=== PATIENT | female | born 1995 | race Caucasian/White ===

== ENCOUNTER 2017-08-17 17:20 | Emergency (ER) | payer BC ==
--- NOTE | 2017-08-17 18:33 | ER ---
Nurse's Notes [facility] Name: Carissa Sommer Age: 22 yrs Sex: Female : 1995 Arrival Date: 08/17/2017 Time: 17:24 Bed 18 Private MD: Giancarlo Mccann T Diagnosis: Headache;Migraine Presentation: 08/17 17:34 Presenting complaint: Patient states: I have been getting migraines a few times a month la1 and lately the medicines have not been helping and I am getting nauseous. Transition of care: patient was not received from another setting of care. Onset of symptoms was August 17, 2017. Initial Sepsis Screen: Does the patient meet any 2 criteria? No. Patient's initial sepsis screen is negative. Does the patient have a suspected source of infection? No. Patient's initial sepsis screen is negative. Care prior to arrival: None. 17:34 Method Of Arrival: Ambulatory la1 17:34 Acuity: SERINA 3 la1 Triage Assessment: 18:14 Headache History: The patient has had previous headaches. General: Appears. General: rk2 Appears in no apparent distress. slender, well groomed, well developed, well nourished, Behavior is calm, cooperative. Pain: Pain currently is 7 out of 10 on a pain scale. Pain began This morning when she woke up Also complains of. Neuro: Level of Consciousness is alert, obeys commands, Oriented to person, place, time, situation. Respiratory: Airway is patent Respiratory effort is even, unlabored, Respiratory pattern is regular, symmetrical. Derm: Skin is pink, warm \T\ dry. 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 - Social history:: Smoking status: Patient/guardian denies using tobacco. Screenin:14 Abuse screen: Denies threats or abuse. Nutritional screening: No deficits noted. rk2 Tuberculosis screening: No symptoms or risk factors identified. Fall Risk None identified. Vital Signs: 17:35 BP 160 / 90; Pulse 111; Resp 16; Temp 98.2; Pulse Ox 100% on R/A; Weight 49.9 kg; la1 Height 4 ft. 11 in. (149.86 cm); 18:56 BP 123 / 92; Pulse 99; Resp 16; Pulse Ox 100% on R/A; rk2 17:35 Body Mass Index 22.22 (49.90 kg, 149.86 cm) la1 ED Course: 17:24 Patient arrived in ED. mr 17:24 Giancarlo Mccann MD is Private Physician. mr 17:35 Triage completed. la1 17:35 Arm band placed on right wrist. la1 17:48 Evelin Bell RN is Primary Nurse. rk2 17:51 Jeff Olivares MD is Attending Physician. nirav 18:14 Patient has correct armband on for positive identification. Bed in low position. Call rk2 light in reach. 18:31 Giancarlo Mccann MD is Referral Physician. [facility] 18:32 Charli Colmenares MD is Referral Physician. [facility] 18:57 No provider procedures requiring assistance completed. Patient did not have IV access rk2 during this emergency room visit. Administered Medications: 18:39 Drug: Zofran 4 mg Route: PO; rk2 18:56 Follow up: Response: No adverse reaction rk2 18:39 Drug: TORadol 60 mg Route: IM; Site: right deltoid; rk2 18:55 Follow up: Response: No adverse reaction; Pain is decreased rk2 Outcome: 18:33 Discharge ordered by . [facility] 18:57 Discharged to 2 18:57 Discharged to home ambulatory. 18:57 Condition: good 18:57 Discharge instructions given to patient, Prescriptions given X 2. 18:58 Patient left the ED. rk2 Signatures: Jeff Olivares MD MD cha Rivera, Maria mr Thomas Workman RN RN la1 Evelin Bell RN RN rk2 Corrections: (The following items were deleted from the chart) 18:19 18:18 URINE --ANCILLARY+UC.LAB.BRZ drawn and sent. rk2 EDMS
--- NOTE | 2017-08-17 18:33 | EDPHYS ---
Physician Documentation [facility] Name: Carissa Sommer Age: 22 yrs Sex: Female : 1995 Arrival Date: 08/17/2017 Time: 17:24 Bed 18 Private MD: Giancarlo Mccann T ED Physician Jeff Olivares HPI: 08/17 18:29 This 22 yrs old Female presents to ER via Ambulatory with complaints of nirav Headache. 18:29 The patient complains of pain to the top of head, forehead, left frontal area, left nirav side of the back of head, right frontal area and right side of the back of head. The patient describes the headache as aching. Onset: The symptoms/episode began/occurred just prior to arrival. Associated signs and symptoms: The patient has no apparent associated signs or symptoms. Severity of symptoms: At its worst the pain was moderate, in the emergency department the pain is unchanged. Headache History: The patient has had previous headaches and this one is similar to previous episodes. The symptoms are alleviated by nothing. the symptoms are aggravated by lights, movement. The patient has experienced similar episodes in the past, several times. 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 - Social history:: Smoking status: Patient/guardian denies using tobacco. ROS: 18:29 Constitutional: Negative for fever, chills, and weight loss, Eyes: Negative for injury, nirav pain, redness, and discharge, ENT: Negative for injury, pain, and discharge, Neck: Negative for injury, pain, and swelling, Cardiovascular: Negative for chest pain, palpitations, and edema, Respiratory: Negative for shortness of breath, cough, wheezing, and pleuritic chest pain, Abdomen/GI: Negative for abdominal pain, nausea, vomiting, diarrhea, and constipation, Back: Negative for injury and pain, : Negative for injury, bleeding, discharge, and swelling, MS/Extremity: Negative for injury and deformity, Skin: Negative for injury, rash, and discoloration, Psych: Negative for depression, anxiety, suicide ideation, homicidal ideation, and hallucinations, Allergy/Immunology: Negative for hives, rash, and allergies, Endocrine: Negative for neck swelling, polydipsia, polyuria, polyphagia, and marked weight changes, Hematologic/Lymphatic: Negative for swollen nodes, abnormal bleeding, and unusual bruising. 18:29 Neuro: Positive for headache. Exam: 18:29 Constitutional: This is a well developed, well nourished patient who is awake, alert, nirav and in no acute distress. Head/Face: Normocephalic, atraumatic. Eyes: Pupils equal round and reactive to light, extra-ocular motions intact. Lids and lashes normal. Conjunctiva and sclera are non-icteric and not injected. Cornea within normal limits. Periorbital areas with no swelling, redness, or edema. ENT: Nares patent. No nasal discharge, no septal abnormalities noted. Tympanic membranes are normal and external auditory canals are clear. Oropharynx with no redness, swelling, or masses, exudates, or evidence of obstruction, uvula midline. Mucous membranes moist. Neck: Trachea midline, no thyromegaly or masses palpated, and no cervical lymphadenopathy. Supple, full range of motion without nuchal rigidity, or vertebral point tenderness. No Meningismus. Chest/axilla: Normal chest wall appearance and motion. Nontender with no deformity. No lesions are appreciated. Cardiovascular: Regular rate and rhythm with a normal S1 and S2. No gallops, murmurs, or rubs. Normal PMI, no JVD. No pulse deficits. Respiratory: Lungs have equal breath sounds bilaterally, clear to auscultation and percussion. No rales, rhonchi or wheezes noted. No increased work of breathing, no retractions or nasal flaring. Abdomen/GI: Soft, non-tender, with normal bowel sounds. No distension or tympany. No guarding or rebound. No evidence of tenderness throughout. Back: No spinal tenderness. No costovertebral tenderness. Full range of motion. Female : Normal external genitalia. Skin: Warm, dry with normal turgor. Normal color with no rashes, no lesions, and no evidence of cellulitis. MS/ Extremity: Pulses equal, no cyanosis. Neurovascular intact. Full, normal range of motion. Neuro: Awake and alert, GCS 15, oriented to person, place, time, and situation. Cranial nerves II-XII grossly intact. Motor strength 5/5 in all extremities. Sensory grossly intact. Cerebellar exam normal. Normal gait. Psych: Awake, alert, with orientation to person, place and time. Behavior, mood, and affect are within normal limits. 18:29 Neck: ROM/movement: is normal, no acute changes, Meningeal signs: are not present, Kernig's sign is negative, Brudzinski's sign is negative. Vital Signs: 17:35 BP 160 / 90; Pulse 111; Resp 16; Temp 98.2; Pulse Ox 100% on R/A; Weight 49.9 kg; la1 Height 4 ft. 11 in. (149.86 cm); 18:56 BP 123 / 92; Pulse 99; Resp 16; Pulse Ox 100% on R/A; rk2 17:35 Body Mass Index 22.22 (49.90 kg, 149.86 cm) la1 MDM: 17:51 Patient medically screened. [facility] 18:34 Data reviewed: vital signs, nurses notes, lab test result(s), urinalysis. [facility] 08/17 18:14 Order name: Urine Dipstick--Ancillary (enter results) 08/17 18:14 Order name: Urine --Ancillary (enter results) 08/17 17:52 Order name: Urine Dipstick-Ancillary (obtain specimen); Complete Time: 18:19 [facility] 08/17 17:52 Order name: Urine Test (obtain specimen); Complete Time: 18:19 [facility] Administered Medications: 18:39 Drug: Zofran 4 mg Route: PO; rk2 18:56 Follow up: Response: No adverse reaction rk2 18:39 Drug: TORadol 60 mg Route: IM; Site: right deltoid; rk2 18:55 Follow up: Response: No adverse reaction; Pain is decreased rk2 Disposition: 08/17/17 18:33 Discharged to Home. Impression: Headache, Migraine. - Condition is Stable. - Discharge Instructions: General Headache Without Cause, Migraine Headache, Migraine Headache, [id number], General Headache Without Cause, [id number]. - Prescriptions for Fioricet with Codeine 50- 325-40-30 mg Oral capsule - take 1 capsule by ORAL route every 4 hours as needed not to exceed 6 capsules per 24hrs; 24 capsule. Zofran 4 mg Oral Tablet - take 1 tablet by ORAL route every 12 hours As needed; 20 tablet. - Medication Reconciliation Form, Thank You Letter, Antibiotic Education, Prescription Opioid Use form. - Work release form (08/17/17 18:59). snw - Family Work Release (08/17/17 18:58). snw - Follow up: Giancarlo Mccann MD; When: 2 - 3 days; Reason: Recheck today's complaints, Continuance of care, Re-evaluation by your physician. Follow up: Charli Colmenares MD; When: 2 - 3 days; Reason: Recheck today's complaints, Re-evaluation by your physician. - Problem is new. - Symptoms have improved. Signatures: Dispatcher [employer] EDMS Jeff Olivares MD MD cha Attema, Lee, RN RN la1 Evelin Bell RN RN rk2 Sharda Vitale PHYSICIAN NEONATOLOGY-[facility] Corrections: (The following items were deleted from the chart) 18:19 18:14 URINE --ANCILLARY+UC.LAB.BRZ ordered. EDMS EDMS
[2017-08-17] MEDS ORDERED: KETOROLAC 30 MG/ML INJ ONE (18:35)
[2017-08-17] MEDS ORDERED: ONDANSETRON 4 MG (ODT) TAB ONE (18:35)
[2017-08-17 19:14] LABS: Urine Blood TRACE (NEG); Urine Glucose NEGATIVE (NEG); Urine Protein NEGATIVE (NEG); Urine Specific Gravity 1.015 (1.005-1.030); Urine pH 6.5 (5.0-7.0)
== END 2017-08-17 18:58 | disposition home or self-care (01) ==
LOC: ER 17:20
DX: G43.909 Migraine, unspecified, not intractable, without status migrainosus (principal)
CPT/HCPCS: 81003; 81025; 96372; 99283

== ENCOUNTER 2018-07-20 14:14 | Emergency (ER) | payer BC ==
--- NOTE | 2018-07-20 15:34 | EDPHYS ---
Physician Documentation [facility] Name: Carissa Sommer Age: 23 yrs Sex: Female : 1995 Arrival Date: 07/20/2018 Time: 14:18 Bed 26 Private MD: Giancarlo Mccann T ED Physician Arnlod Fisher HPI: 07/20 15:31 This 23 yrs old Female presents to ER via Ambulatory with complaints of Foot kb Injury. 15:32 The patient presents with a contusion, an injury, pain, swelling, tenderness. The kb complaints affect the left foot. Context: The problem was sustained at work, resulted from a heavy object falling, a can, the patient can fully bear weight, the patient is able to ambulate. Onset: The symptoms/episode began/occurred this morning. Modifying factors: The symptoms are alleviated by nothing, the symptoms are aggravated by weight bearing. Associated signs and symptoms: Pertinent positives: swelling, Pertinent negatives: calf tenderness, fever, nausea, numbness, rash, tingling, vomiting, warmth, weakness. Severity of symptoms: At their worst the symptoms were moderate, in the emergency department the symptoms are unchanged. The patient has not experienced similar symptoms in the past. The patient has not recently seen a physician. 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 - Social history:: Smoking status: Patient/guardian denies using tobacco. - Ebola Screening: : No symptoms or risks identified at this time. ROS: 15:29 Constitutional: Negative for fever, chills, and weight loss, Cardiovascular: Negative kb for chest pain, palpitations, and edema, Respiratory: Negative for shortness of breath, cough, wheezing, and pleuritic chest pain, Abdomen/GI: Negative for abdominal pain, nausea, vomiting, diarrhea, and constipation, Neuro: Negative for headache, weakness, numbness, tingling, and seizure. 15:29 MS/extremity: Positive for injury or acute deformity, contusion, ecchymosis, pain, swelling, tenderness, of the left fifth toe, Negative for Exam: 15:31 Constitutional: This is a well developed, well nourished patient who is awake, alert, kb and in no acute distress. Head/Face: Normocephalic, atraumatic. Chest/axilla: Normal chest wall appearance and motion. Nontender with no deformity. No lesions are appreciated. Cardiovascular: Regular rate and rhythm with a normal S1 and S2. No gallops, murmurs, or rubs. Normal PMI, no JVD. No pulse deficits. Respiratory: Lungs have equal breath sounds bilaterally, clear to auscultation and percussion. No rales, rhonchi or wheezes noted. No increased work of breathing, no retractions or nasal flaring. Abdomen/GI: Soft, non-tender, with normal bowel sounds. No distension or tympany. No guarding or rebound. No evidence of tenderness throughout. Neuro: Awake and alert, GCS 15, oriented to person, place, time, and situation. Cranial nerves II-XII grossly intact. Motor strength 5/5 in all extremities. Sensory grossly intact. Cerebellar exam normal. Normal gait. 15:31 Musculoskeletal/extremity: Extremities: grossly normal except: noted in the left fifth toe: contusion, ecchymosis, pain, swelling, tenderness, ROM: no acute changes, Circulation is intact in all extremities. Sensation intact. Weight bearing: able to fully bear weight. Vital Signs: 14:33 BP 133 / 77; Pulse 64; Resp 18; Temp 97.5; Pulse Ox 98% on R/A; Weight 51.26 kg; Height la1 4 ft. 11 in. (149.86 cm); Pain 6/10; 15:59 BP 123 / 77; Pulse 60; Resp 18; Pulse Ox 100% on R/A; Pain 0/10; mg2 14:33 Body Mass Index 22.82 (51.26 kg, 149.86 cm) la1 MDM: 14:49 Patient medically screened. kb 15:29 Data reviewed: vital signs, nurses notes. Data interpreted: Pulse oximetry: on room air kb is 98 %. Interpretation: normal. Counseling: I had a detailed discussion with the patient and/or guardian regarding: the historical points, exam findings, and any diagnostic results supporting the discharge/admit diagnosis, radiology results, the need for outpatient follow up, a family practitioner, to return to the emergency department if symptoms worsen or persist or if there are any questions or concerns that arise at home. 15:32 Test interpretation: by ED physician or midlevel provider: plain radiologic studies, kb negative for fracture. 07/20 14:33 Order name: Foot Left 3 View XRAY; Complete Time: 15:43 la1 Administered Medications: 15:55 Drug: Ibuprofen 600 mg Route: PO; mg2 15:55 Follow up: Response: No adverse reaction; Medication administered at discharge. mg2 Disposition: 18:47 Co-signature as Attending Physician, Arnold Fisher MD. rn Disposition: 07/20/18 15:33 Discharged to Home. Impression: Contusion of left lesser toe(s) without damage to nail. - Condition is Stable. - Discharge Instructions: Foot Contusion, [id number]. - Medication Reconciliation Form, Thank You Letter, Antibiotic Education, Prescription Opioid Use, Work release form form. - Follow up: Emergency Department; When: As needed; Reason: Worsening of condition. Follow up: Private Physician; When: 2 - 3 days; Reason: Recheck today's complaints, Continuance of care, Re-evaluation by your physician. Signatures: Dispatcher [employer] EDMS Dania Higginbotham, SOLE MOLDING MACHINE OPERATOR-C SOLE MOLDING MACHINE OPERATOR-Ckb Arnold Fisher MD MD rn Attema, Lee, RN RN la1 Dax Sharpe RN RN mg2 Corrections: (The following items were deleted from the chart) 16:00 15:33 07/20/2018 15:33 Discharged to Home. Impression: Contusion of left lesser toe(s) mg2 without damage to nail. Condition is Stable. Forms are Medication Reconciliation Form, Thank You Letter, Antibiotic Education, Prescription Opioid Use. Follow up: Emergency Department; When: As needed; Reason: Worsening of condition. Follow up: Private Physician; When: 2 - 3 days; Reason: Recheck today's complaints, Continuance of care, Re-evaluation by your physician. kb
--- NOTE | 2018-07-20 15:34 | ER ---
Nurse's Notes [facility] Name: Carissa Sommer Age: 23 yrs Sex: Female : 1995 Arrival Date: 07/20/2018 Time: 14:18 Bed 26 Private MD: Giancarlo Mccann T Diagnosis: Contusion of left lesser toe(s) without damage to nail Presentation: 07/20 14:32 Presenting complaint: Patient states: At about 0700 this morning I dropped a 5-6 pound la1 can on my left foot on the outside. Transition of care: patient was not received from another setting of care. Onset of symptoms was July 20, 2018. Risk Assessment: Do you want to hurt yourself or someone else? Patient reports no desire to harm self or others. Initial Sepsis Screen: Does the patient meet any 2 criteria? No. Patient's initial sepsis screen is negative. Does the patient have a suspected source of infection? No. Patient's initial sepsis screen is negative. Care prior to arrival: None. 14:32 Method Of Arrival: Ambulatory la1 14:32 Acuity: SERINA 4 la1 RN ORTHOPEDIC: 15:59 lmp-unknown mg2 Historical: - Allergies: 14:32 No Known Allergies; la1 - PMHx: 14:32 Migraines; la1 - Immunization history:: Adult Immunizations up to date. - Social history:: Smoking status: Patient/guardian denies using tobacco. - Ebola Screening: : No symptoms or risks identified at this time. Screenin:20 Abuse screen: Denies threats or abuse. Denies injuries from another. Nutritional mg2 screening: No deficits noted. Tuberculosis screening: No symptoms or risk factors identified. Fall Risk None identified. Assessment: 15:21 General: Appears in no apparent distress. comfortable, Behavior is calm, cooperative. mg2 Pain: Complains of pain in left foot Pain does not radiate. Pain currently is 4 out of 10 on a pain scale. Quality of pain is described as aching, Pain began suddenly, at 7 am this morning Is intermittent. Neuro: Level of Consciousness is awake, alert, obeys commands, Oriented to person, place, time, situation. Cardiovascular: Capillary refill < 3 seconds Patient's skin is warm and dry. Respiratory: Airway is patent Respiratory effort is even, unlabored, Respiratory pattern is regular, symmetrical. GI: No signs and/or symptoms were reported involving the gastrointestinal system. : No signs and/or symptoms were reported regarding the genitourinary system. EENT: No signs and/or symptoms were reported regarding the EENT system. Derm: Skin is intact, is healthy with good turgor, Skin is pink, warm \T\ dry. normal. Derm: Bruising that is dark purple, on left foot. Musculoskeletal: Circulation, motion, and sensation intact. Capillary refill < 3 seconds. Injury Description: Bruise. Vital Signs: 14:33 BP 133 / 77; Pulse 64; Resp 18; Temp 97.5; Pulse Ox 98% on R/A; Weight 51.26 kg; Height la1 4 ft. 11 in. (149.86 cm); Pain 6/10; 15:59 BP 123 / 77; Pulse 60; Resp 18; Pulse Ox 100% on R/A; Pain 0/10; mg2 14:33 Body Mass Index 22.82 (51.26 kg, 149.86 cm) la1 ED Course: 14:18 Patient arrived in ED. mr 14:18 Giancarlo Mccann MD is Private Physician. mr 14:32 Triage completed. la1 14:33 Dania Higginbotham FNP-C is [facility]. kb 14:33 Arnold Fisher MD is Attending Physician. kb 14:33 Arm band placed on left wrist. la1 15:04 Foot Left 3 View XRAY In Process Unspecified. EDMS 15:16 Dax Sharpe, RN is Primary Nurse. mg2 15:20 No provider procedures requiring assistance completed. Patient did not have IV access mg2 during this emergency room visit. 15:22 Patient has correct armband on for positive identification. Door closed. Ice pack to mg2 injury. Administered Medications: 15:55 Drug: Ibuprofen 600 mg Route: PO; mg2 15:55 Follow up: Response: No adverse reaction; Medication administered at discharge. mg2 Outcome: 15:33 Discharge ordered by . kb 15:59 Discharged to home ambulatory. mg2 15:59 Condition: stable 15:59 Discharge instructions given to patient, Instructed on discharge instructions, follow up and referral plans. medication usage, Demonstrated understanding of instructions, follow-up care. 16:00 Patient left the ED. mg2 Signatures: Dispatcher [employer] EDMS Dania Higginbotham FNP-C FNP-Tatyana León mr Inésguillermina, Thomas, RN RN la1 Dax Sharpe, RN RN mg2
--- NOTE | 2018-07-20 15:40 | RAD REPORT ---
EXAM DESCRIPTION: RAD - Foot Left 3 View - 07/20/2018 3:03 pm CLINICAL HISTORY: Left foot pain COMPARISON: None. FINDINGS: No fracture, dislocation or periosteal reaction. No acute or destructive bony process. No air or foreign body in the soft tissues. IMPRESSION: Negative left foot examination.
[2018-07-20] MEDS ORDERED: IBUPROFEN 200 MG TAB PO ONE (16:01)
== END 2018-07-20 16:00 | disposition home or self-care (01) ==
LOC: ER 14:14
DX: S90.122A Contusion of left lesser toe(s) without damage to nail, initial encounter (principal); W20.8XXA Other cause of strike by thrown, projected or falling object, initial encounter
CPT/HCPCS: 99283